=== PATIENT | male | born 1950 | race Caucasian/White ===

== ENCOUNTER 2016-09-24 07:58 | Observation (INO) | payer OTHER, MEDICARE ==
--- NOTE | 2016-09-09 14:27 | PAT Medication Instructions ---
Service Date Sep 09, 2016. 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 Instructions For Your Scheduled Surgery - Hold the following medications the morning of surgery: Zolpidem Tartrate (Zolpidem Tartrate), 1 TAB PO HS PRN for RN Ranitidine (Zantac), 150 MG PO BID Finasteride (Proscar), 5 MG PO QAM Bumetanide (Bumex), 1 MG PO QAM - Take the following medications the morning of surgery with a sip of water: Pantoprazole (Protonix), 40 MG PO QAM Levothyroxine Sodium (Levothyroxine Sodium), 1 TAB PO QAM Carvedilol (Coreg), 12.5 MG PO BID - Hold the following medications as scheduled the night before surgery: Lisinopril (Zestril), 10 MG PO QPM - Take the following medications as scheduled the night before surgery: Zolpidem Tartrate (Zolpidem Tartrate), 1 TAB PO HS PRN for RN Tamsulosin Hcl (Flomax), 0.4 MG PO QPM Ranitidine (Zantac), 150 MG PO BID Potassium Chloride (Micro-K Ext Rel), 10 MEQ PO QPM Montelukast Sodium (Singulair), 10 MG PO QPM Carvedilol (Coreg), 12.5 MG PO BID Allopurinol (Zyloprim), 300 MG PO QPM If you have any questions please call us at [phone] (Karen Ridley PA-C) or [phone] or [phone]
[2016-09-09 15:04] LABS: URINE APPEARANCE CLEAR (CLEAR); URINE BILIRUBIN NEG (NEG); URINE COLOR YELLOW; URINE EPITHELIAL CELL AUTO 0-5 /lpf (0-5); URINE NITRITE NEG (NEG); URINE PH 6.5 (4.5-7.5); UROBILINOGEN NEG (NEG)
[2016-09-09 15:08] LABS: HEMATOCRIT 40.9 % (42-52); MEAN CELL VOLUME 95.1 fL (80-100); MEAN CORPUSCULAR HGB CONC 34.7 g/dl (32-36); MEAN PLATELET VOLUME 10.2 fL (7.4-10.4); PLATELET COUNT 128 K/uL (130-400); WHITE BLOOD COUNT 4.63 K/uL (4.8-10.8)
[2016-09-09 15:09] LABS: MANUAL MICROSCOPIC REQUIRED? NO; REVIEW REQ? NO
[2016-09-09 15:51] LABS: BASO % 0.6 %; BASO ABS # 0.03 K/uL (0-0.2); COMPLETE YES; EOS % 0.9 %; IG% 0.2 %; LYMPH % 31.5 %; LYMPH ABS # 1.46 K/uL (1.2-3.4); MONO % 5.4 %; NEUT % 61.4 %
[2016-09-09 16:06] LABS: BUN/CREATININE RATIO 18.4 (10-20); CALCIUM 9.1 mg/dl (8.5-10.1); CREATININE 1.4 mg/dl (0.60-1.40); POTASSIUM 3.7 mmol/L (3.5-5.1)
[~2016-09-24] VITALS: Ht 185.4 cm; Wt 104.3 kg
[2016-09-24] VITALS (11 sets, daily range): BP systolic 110–145; BP diastolic 74–95; PULSE 62–76; TEMP 36.4–36.6; O2SAT 96–100; Ht 185.4 cm; Wt 104.3 kg
[~2016-09-24 07:58] MED LIST: ALLO300T2 PO; BUME1TAB PO; CARV12.52 PO; CIPROFLOXACIN / D5W 400 MG IV SCH; CIPROFLOXACIN 400MG / D5W IV SCH; FINA5TAB PO; LACTATED RINGER'S 1000ML 1,000 ML IV SCH; LEVO25TA5 PO; LISI-461 PO; MONT1TAB3 PO; PANT40TA PO; POTA10CA28 PO; TAMS0.4C38 PO; ZNTT/150 PO; ZOLP10TA6 PO
[2016-09-24] MEDS ORDERED: LIDOCAINE HCL 2% 2 ML VIAL (20MG/ML) ONE ×2 (09:14→10:35)
[2016-09-24] MEDS ORDERED: DEXAMETHASONE SOD INJ 4 MG/ML VIAL ONE (09:14)
[2016-09-24] MEDS ORDERED: PROPOFOL IV EMULSION 10 MG/ML 20 ML VIAL IV ONE (09:14)
[2016-09-24] MEDS ORDERED: ONDANSETRON INJ 2 MG/ML 2 ML VIAL ONE (09:14)
[2016-09-24] MEDS ORDERED: FENTANYL CITRATE INJ 50 MCG/1 ML 2 ML VIAL ONE (09:14)
[2016-09-24] MEDS ORDERED: MIDAZOLAM HCL 1 MG/ML 2ML VIAL ONE (09:14)
[2016-09-24] MEDS ORDERED: DOBUTamine 500MG / 250ML D5W ONE (09:42)
--- NOTE | 2016-09-24 09:46 | History & Physical Bridge Note ---
H&P Re-Evaluation Bridge Note: I have examined the patient, reviewed the History & Physical and in the interval since the performance of the History & Physical I have noted the following changes of clinical significance: No changes noted
[2016-09-24] MEDS ORDERED: ETOMIDATE 2 MG/ML 20 ML VIAL IV ONE (10:51)
[2016-09-24] MEDS ORDERED: EpHEDrine SULFATE INJ 50 MG/ML AMP IV PRN (11:30)
[2016-09-24] MEDS ORDERED: ATROPINE SULFATE 0.1 MG/ML 5ML SYR IV PRN (11:30)
[2016-09-24] MEDS ORDERED: PROMETHAZINE HCL INJ 12.5 MG in SODIUM CHLORIDE 0.9% 50ML 50 ML IV PRN (11:30)
[2016-09-24] MEDS ORDERED: NALOXONE HCL 0.4 MG/1 ML VIAL/CARP IV PRN (11:30)
[2016-09-24] MEDS ORDERED: ONDANSETRON INJ 2 MG/ML 2 ML VIAL IV PRN ×2 (11:30→11:45)
--- NOTE | 2016-09-24 11:36 | [facility] Post Operative Brief Note ---
Immediate Operative Summary Operative Date Sep 24, 2016. Pre-Operative Diagnosis Benign Prostatic Hyperplasia with lower urinary tract symptoms Post-Operative Diagnosis Benign Prostatic Hyperplasia with lower urinary tract symptoms Procedure(s) Performed Transurethral Resection Prostate Surgeon Dr. Ramos Cashier Manager Surgeon(s) none Estimated Blood Loss 10cc Findings Significant lateral lobe hypertrophy Specimens Prostate chips Drains 22F peña Anesthesia Gen Complication(s) None Disposition Recovery Room / PACU (stable)
[2016-09-24] MEDS ORDERED: ACETAMINOPHEN/CODEINE 300/30MG TAB PO PRN (11:45)
[2016-09-24] MEDS ORDERED: ACETAMINOPHEN 325 MG TAB PO PRN (11:45)
[2016-09-24] MEDS ORDERED: ZOLPIDEM TARTRATE 10 MG TAB PO PRN (11:45)
[2016-09-24] MEDS: FENTANYL CITRATE INJ 50 MCG/1 ML 2 ML VIAL IV PRN ×2 (12:13→12:18)
--- NOTE | 2016-09-24 12:17 | OPERATIVE REPORT ---
DATE OF OPERATION: 09/24/2016 PREOPERATIVE DIAGNOSIS: Benign prostatic hypertrophy. POSTOPERATIVE DIAGNOSIS: Benign prostatic hypertrophy. PROCEDURES PERFORMED: Cystoscopy and transurethral resection of prostate. ANESTHESIA: General. ESTIMATED BLOOD LOSS: 10 mL. URINE OUTPUT: Not recorded. SPECIMENS: Prostate chips for routine pathology. DRAINS: 22-Icelandic Sharma catheter. DESCRIPTION OF THE PROCEDURE: Osvaldo Quesada was identified in the preoperative holding area. Appropriate informed consents were reviewed and completed and the patient was transported to the operating suite. Upon arrival, he received appropriate preoperative antibiotics in the form of ciprofloxacin. Adequate general anesthesia was achieved and the patient was placed in dorsal lithotomy position, where he was sterilely prepped and draped in standard fashion. I began the case by passing a 27-Icelandic resectoscope with 30 degree lens and visual obturator per urethra. There was no evidence of stricture disease within the urethra. Prostate was notably enlarged with predominant lateral lobe hypertrophy and essentially no intravesical component. Ureteral orifices were easily identified inside the bladder and were located several centimeters from the bladder neck. Full inspection of the bladder failed to reveal any tumors or other abnormalities. Following this full inspection, I withdrew the visual obturator and passed a resecting loop and I subsequently resected the prostate sequentially beginning at the bladder neck by making incisions at 5 and 7 o'clock and resecting the intervening segment between the two to flatten the bladder neck followed by resection of the left lateral lobe and ultimately the right lateral lobe. After confirming adequate resection of these areas, I resected apical tissue adjacent to the verumontanum after complete resection. I ensured excellent hemostasis with focused electrocautery to all of the small bleeding vessels. I irrigated all chips out of the bladder. After confirming that his urine was clear and was free of chips, I concluded the case. The prostate appeared to be widely patent at the conclusion leaving the bladder full and with gentle abdominal pressure, I was able to generate a strong stream of urine. A 22-Icelandic Sharma catheter was inserted without difficulty and the case was concluded. The patient was taken to the PACU in stable condition. I attest to the content of the Intraoperative Record and any orders documented therein. Any exceptio ns are noted below.
[2016-09-24] MEDS ORDERED: FUROSEMIDE 40 MG/4 ML VIAL IV STA (12:58)
[2016-09-24] MEDS ORDERED: FUROSEMIDE 40 MG/4 ML VIAL ONE (13:04)
--- NOTE | 2016-09-24 13:25 | DIAGNOSTIC IMAGING REPORT ---
CHEST ONE VIEW PORTABLE CLINICAL HISTORY: Congestive failure COMPARISON STUDY: No previous studies for comparison. FINDINGS: The heart is enlarged. There is a left subclavian pacer/defibrillator present. Epicardial electrode is also visualized. There is no focal pulmonary consolidation. There is no overt failure. There are no pleural effusions.[ IMPRESSION: Mild cardiomegaly. No acute findings. Electronically signed by: Kingston Brooks M.D. 09/24/2016 1:22 PM Dictated Date/Time: 09/24/2016 1:22 PM
[2016-09-24] MEDS ORDERED: LIDOCAINE HCL 2% JELLY 30 ML TUBE EXT PRN (13:45)
--- NOTE | 2016-09-24 13:53 | Anesthesiology Progress Note ---
Anesthesia Post Op Note Date & Time Sep 24, 2016 at 13:46 Vital Signs Pain Intensity: 3 Vital Signs Past 12 Hours Date Time Temp Pulse Resp B/P Pulse Ox O2 Delivery O2 Flow Rate FiO2 09/24/16 13:40 36.3 68 18 134/81 100 Nasal Cannula 2 09/24/16 13:30 36.3 66 18 131/83 98 Nasal Cannula 2 09/24/16 13:20 63 19 125/82 100 Room Air 09/24/16 13:10 67 19 121/79 100 Room Air 09/24/16 13:00 66 19 126/77 100 Room Air 09/24/16 12:50 63 19 126/80 100 Room Air 09/24/16 12:40 64 19 125/80 98 Room Air 09/24/16 12:30 62 19 128/81 100 Room Air 09/24/16 12:20 65 19 99/73 99 Room Air 09/24/16 12:10 63 24 121/80 99 Room Air 09/24/16 12:00 63 16 130/86 100 Mask 10 09/24/16 11:50 65 16 133/87 98 Mask 10 09/24/16 11:40 36.6 70 16 142/93 100 Mask 10 09/24/16 08:44 36.4 70 20 140/87 98 Room Air Notes Mental Status: alert / awake / arousable, participated in evaluation Pt Amnestic to Procedure: Yes Nausea / Vomiting: adequately controlled Pain: adequately controlled Airway Patency, RR, SpO2: stable & adequate BP & HR: stable & adequate Hydration State: stable & adequate Anesthetic Complications: no major complications apparent patient has a non-ischemic cardiomyopathy w/EF of 15%.Pt states he is prone to CHF at the slightest provocation.He knows since he states he starts developing SOB. He the takes a diuretic. A cxr was performed which was w/o CHF. Furosemide was administered iv,40 mg, and pat started a brisk diuresis. He states he now feels better. The pt had a TURP and fluid was absorbed thru the prostatic sinuses contributing to excess fluid. He was administered only 150 ml LR in OR and we had started from inception a dobutamine drip at 5 mcgs/kg/min to help with contractility.
[2016-09-24] MEDS ORDERED: IV FLUIDS COMPLETED PRN ×2 (14:00)
[2016-09-24] MEDS: ACETAMINOPHEN/CODEINE 300/30MG TAB PO PRN ×2 (14:53→20:54)
[2016-09-24] MEDS ORDERED: NURSING VERBAL MED ORDER ONE ×2 (15:45→16:30)
[2016-09-24] MEDS ORDERED: BELLADONNA/OPIUM SUPP 60 MG SUPP PR SCH (16:15)
[2016-09-24] MEDS ORDERED: BELLADONNA/OPIUM SUPP 60 MG SUPP PR PRN (16:45)
[2016-09-24] MEDS: CARVEDILOL 12.5 MG TAB PO SCH (20:45)
[2016-09-24] MEDS: RANITIDINE HCL 150 MG TAB PO SCH (20:45)
[2016-09-24] MEDS: CIPROFLOXACIN / D5W 400 MG in PREMIXED IN D5W 200 ML IV SCH (20:46)
[2016-09-24] MEDS ORDERED: POTASSIUM CHLORIDE 10 MEQ TABCR PO SCH (21:00)
[2016-09-24] MEDS ORDERED: LISINOPRIL 10 MG TAB PO SCH (21:00)
[2016-09-24] MEDS ORDERED: MONTELUKAST SOD 10 MG TAB PO SCH (21:00)
[2016-09-24] MEDS ORDERED: ALLOPURINOL 300 MG TAB PO SCH (21:00)
[2016-09-25 00:01] VITALS: O2SAT 96
[2016-09-25 04:17] VITALS: BP 111/66; PULSE 69; TEMP 36.4; O2SAT 96
[2016-09-25] MEDS ORDERED: LEVOTHYROXINE 25 MCG TAB PO SCH (06:00)
[2016-09-25] MEDS: ACETAMINOPHEN/CODEINE 300/30MG TAB PO PRN (06:07)
[2016-09-25 06:16] LABS: BASO % 0.1 %; BASO ABS # 0.01 K/uL (0-0.2); COMPLETE YES; HEMATOCRIT 42.8 % (42-52); IG% 0.2 %; LYMPH % 9.8 %; LYMPH ABS # 0.85 K/uL (1.2-3.4); MEAN CELL VOLUME 97.7 fL (80-100); MEAN CORPUSCULAR HEMOGLOBIN 32.9 pg (25-34); MEAN CORPUSCULAR HGB CONC 33.6 g/dl (32-36); MEAN PLATELET VOLUME 10.1 fL (7.4-10.4); MONO % 6.7 %; NEUT % 83.2 %; PLATELET COUNT 138 K/uL (130-400); RED BLOOD COUNT 4.38 M/uL (4.7-6.1); WHITE BLOOD COUNT 8.67 K/uL (4.8-10.8)
[2016-09-25 06:52] LABS: BUN/CREATININE RATIO 12.8 (10-20); CREATININE 1.4 mg/dl (0.60-1.40); POTASSIUM 4.2 mmol/L (3.5-5.1)
[2016-09-25 08:40] VITALS: BP 119/72; PULSE 76; TEMP 36.5; O2SAT 96
[2016-09-25] MEDS: CARVEDILOL 12.5 MG TAB PO SCH (08:58)
[2016-09-25] MEDS: RANITIDINE HCL 150 MG TAB PO SCH (08:58)
[2016-09-25] MEDS: CIPROFLOXACIN / D5W 400 MG in PREMIXED IN D5W 200 ML IV SCH (08:58)
[2016-09-25] MEDS ORDERED: BUMETANIDE 1 MG TAB PO SCH (09:00)
[2016-09-25] MEDS ORDERED: FINASTERIDE 5 MG TAB PO SCH (09:00)
[2016-09-25] MEDS ORDERED: PANTOprazole SOD 40 MG TAB PO SCH (09:00)
[2016-09-25] MEDS ORDERED: ACET-749 PO (09:37)
[2016-09-25] MEDS ORDERED: DOCU-94 PO (09:37)
[2016-09-25] MEDS ORDERED: CIPR1TAB10 PO (09:37)
--- NOTE | 2016-09-25 09:40 | Discharge Instructions ---
Discharge Instructions Date of Service Sep 25, 2016. Admission Reason for Admission: Benign Prostatic Hyerplasia Discharge Discharge Diagnosis / Problem: Benign Prostatic Hyperplasia Discharge Goals Goal(s): Decrease discomfort, Improve function, Increase independence, Improve disease control, Therapeutic intervention Activity Recommendations Activity Limitations: as noted below Lifting Limitations: no more than 25 pounds (x 2 weeks) Exercise/Sports Limitations: rest today, gradually increase as tolerated ( Light activit x 2 weeks) May Resume Sexual Activity: after follow-up appointment Shower/Bathe: no limitations Driving or Machine Use: resume 3 days after discharge (Do not drive while taking narcotics) . Current Hospital Diet Hospital Diet(s): Regular Diet Discharge Diet Recommended Diet: Regular Diet Procedures Procedures Performed: Transurethral Resection Prostate Pending Studies Studies pending at discharge: yes List of pending studies: prostate tissue for pathology Medical Emergencies . Who to Call and When: Medical Emergencies: If at any time you feel your situation is an emergency, please call 911 immediately. . Non-Emergent Contact Non-Emergency issues call your: Urologist Call Non-Emergent contact if: temperature is above 101.5, your pain is not controlled, your pain is worsening, your pain is unusual for you, your pain is concerning you, you have any medication questions . . "Provider Documentation" section prepared by Daysi Perea. . VTE Core Measure Inpt VTE Proph given/why not?: SCD's [place] Drug Monitoring Program Search Results: patient reviewed within database, see additional documentation Drug Monitoring Findings: History of chronic tramadol use. No other issues found.
--- NOTE | 2016-09-25 09:57 | Progress Note ---
Subjective Date of Service: Sep 25, 2016. Subjective Pt evaluation today including: conversation w/ patient, chart review, lab review Voiding: peña catheter in place (patent, draining dark peralta urine) 66 yo male s/p TURP. Seen earlier by Dr. Ramos this morning. Peña draining dark peralta colored urine. TOV ordered by Dr. Ramos this morning. H&H stable. Cr is 1.4. Pt denies pain or other issues this morning. Review of Systems Constitutional: No chills, No fever Respiratory: No shortness of breath Cardiac: No chest pain Abdomen: No nausea, No pain, No vomiting Male : + hematuria Objective Vital Signs Date Time Temp Pulse Resp B/P Pulse Ox O2 Delivery O2 Flow Rate FiO2 09/25/16 08:40 36.5 76 20 119/72 96 Room Air 09/25/16 04:17 36.4 69 18 111/66 96 Room Air 09/25/16 04:00 Room Air 09/25/16 00:01 96 Room Air 09/24/16 23:10 36.6 68 18 110/74 96 Room Air 09/24/16 20:00 98 Room Air 09/24/16 19:26 36.6 66 18 138/95 98 Room Air 09/24/16 17:45 36.6 67 18 127/80 100 Room Air 09/24/16 17:05 100 Nasal Cannula 09/24/16 16:52 36.6 72 18 128/77 09/24/16 16:45 36.6 73 18 119/75 100 Room Air 09/24/16 15:45 36.6 76 18 145/91 98 Nasal Cannula 09/24/16 15:45 36.6 69 19 127/80 100 Room Air 09/24/16 14:45 36.6 65 18 128/82 98 Nasal Cannula 09/24/16 14:00 36.6 66 18 145/82 100 Nasal Cannula 2.0 09/24/16 14:00 36.4 62 18 130/78 97 Nasal Cannula 2.0 09/24/16 14:00 100 Nasal Cannula 2.0 09/24/16 13:40 36.3 68 18 134/81 100 Nasal Cannula 2 09/24/16 13:30 36.3 66 18 131/83 98 Nasal Cannula 2 09/24/16 13:20 63 19 125/82 100 Room Air 09/24/16 13:10 67 19 121/79 100 Room Air 09/24/16 13:00 66 19 126/77 100 Room Air 09/24/16 12:50 63 19 126/80 100 Room Air 09/24/16 12:40 64 19 125/80 98 Room Air 09/24/16 12:30 62 19 128/81 100 Room Air 09/24/16 12:20 65 19 99/73 99 Room Air 09/24/16 12:10 63 24 121/80 99 Room Air 09/24/16 12:00 63 16 130/86 100 Mask 10 09/24/16 11:50 65 16 133/87 98 Mask 10 09/24/16 11:40 36.6 70 16 142/93 100 Mask 10 Physical Exam General Appearance: no apparent distress Eyes: normal inspection ENT: hearing grossly normal Neck: no JVD Respiratory/Chest: no respiratory distress, no accessory muscle use Cardiovascular: no JVD Extremities: normal inspection Neurologic/Psychiatric: alert, normal mood/affect, oriented x 3 Skin: normal color Laboratory Results Last 24 Hours Test 09/25/16 05:21 White Blood Count 8.67 K/uL Red Blood Count 4.38 M/uL Hemoglobin 14.4 g/dL Hematocrit 42.8 % Mean Corpuscular Volume 97.7 fL Mean Corpuscular Hemoglobin 32.9 pg Mean Corpuscular Hemoglobin Concent 33.6 g/dl Platelet Count 138 K/uL Mean Platelet Volume 10.1 fL Neutrophils (%) (Auto) 83.2 % Lymphocytes (%) (Auto) 9.8 % Monocytes (%) (Auto) 6.7 % Eosinophils (%) (Auto) 0.0 % Basophils (%) (Auto) 0.1 % Neutrophils # (Auto) 7.21 K/uL Lymphocytes # (Auto) 0.85 K/uL Monocytes # (Auto) 0.58 K/uL Eosinophils # (Auto) 0.00 K/uL Basophils # (Auto) 0.01 K/uL RDW Standard Deviation 49.7 fL RDW Coefficient of Variation 13.8 % Immature Granulocyte % (Auto) 0.2 % Immature Granulocyte # (Auto) 0.02 K/uL Sodium Level 138 mmol/L Potassium Level 4.2 mmol/L Chloride Level 102 mmol/L Carbon Dioxide Level 29 mmol/L Anion Gap 7.0 mmol/L Blood Urea Nitrogen 18 mg/dl Creatinine 1.40 mg/dl Est Creatinine Clear Calc Drug Dose 64.0 ml/min Estimated GFR () 59.4 Estimated GFR (Non- 51.3 BUN/Creatinine Ratio 12.8 Random Glucose 113 mg/dl Calcium Level 9.0 mg/dl Assessment and Plan POD #1 s/p TURP AFVSS. Pt doing well post-op. Will attempt a TOV this morning. D/c home later this morning after pt voids and ambulates. D/c home with Tylenol #3, Colace, and 5 days of Cipro. F/u with Dr. Ramos as scheduled.
[2016-09-25 11:30] VITALS: BP 123/69; PULSE 69; TEMP 36.6; O2SAT 97
[2016-09-25 12:15] VITALS: BP 123/69; PULSE 69; TEMP 36.6; O2SAT 97
--- NOTE | 2016-09-25 12:57 | Anesthesiology Progress Note ---
Anesthesia Post Op Note Date & Time Sep 25, 2016 at 12:55 Vital Signs Pain Intensity: 0.0 Vital Signs Past 12 Hours Date Time Temp Pulse Resp B/P Pulse Ox O2 Delivery O2 Flow Rate FiO2 09/25/16 12:15 36.6 69 20 97 Room Air 09/25/16 11:30 36.6 69 20 123/69 97 Room Air 09/25/16 08:40 36.5 76 20 119/72 96 Room Air 09/25/16 08:00 Room Air 09/25/16 04:17 36.4 69 18 111/66 96 Room Air 09/25/16 04:00 Room Air Notes Mental Status: alert / awake / arousable, participated in evaluation Pt Amnestic to Procedure: Yes Nausea / Vomiting: adequately controlled Pain: adequately controlled Airway Patency, RR, SpO2: stable & adequate BP & HR: stable & adequate Hydration State: stable & adequate Anesthetic Complications: no major complications apparent
--- NOTE | 2016-10-03 08:23 | Discharge Summary ---
Discharge Summary Date of Service October 03, 2016. Discharge Summary Admission Date: Sep 24, 2016 at 11:41 Discharge Date: Sep 25, 2016 Discharge Disposition: Home Principal Diagnosis: BPH with urinary symptoms Procedures: TURP Medication Reconciliation New Medications: Ciprofloxacin Hcl (Cipro) 500 Mg Tab 500 MG PO BID, #10 TAB Docusate Sodium (Colace) 100 Mg Cap 1 CAP PO BID PRN for Constipation for 15 Days, #30 CAP Acetaminophen/Codeine (Tylenol W/Codeine #3) 300 Mg/30 Mg Tab 2 TAB PO Q6H PRN for severe pain (pain scale 7-10), #20 TAB 0 Refills Do not take with Tramadol. Continued Medications: Allopurinol (Zyloprim) 300 Mg Tab 300 MG PO QPM, TAB Bumetanide (Bumex) 1 Mg Tab 1 MG PO QAM, TAB Carvedilol (Coreg) 12.5 Mg Tab 12.5 MG PO BID, TAB Levothyroxine Sodium (Levothyroxine Sodium) 25 Mcg Tab 1 TAB PO QAM for 90 Days, #90 TAB 3 Refills Lisinopril (Zestril) 10 Mg Tab 10 MG PO QPM, TAB Montelukast Sodium (Singulair) 10 Mg Tab 10 MG PO QPM, TAB Pantoprazole (Protonix) 40 Mg Tab 40 MG PO QAM, #30 TAB Potassium Chloride (Micro-K Ext Rel) 10 Meq Capcr 10 MEQ PO QPM, CAP Ranitidine (Zantac) 150 Mg Tab 150 MG PO BID, TAB Zolpidem Tartrate (Zolpidem Tartrate) 10 Mg Tab 1 TAB PO HS PRN for RN for 30 Days, #30 TAB Discontinued Medications: Finasteride (Proscar) 5 Mg Tab 5 MG PO QAM, TAB Tamsulosin Hcl (Flomax) 0.4 Mg Cap 0.4 MG PO QPM, CAP Hospital Course Pt admitted for TURP. Known history of CHF and some COPD. Tolerated his urological procedure very well. Kept on telemetry overnight and proved to be stable. Successfully completed a trial of void on POD#1 and was discharged home in stable condition. Total time spent on discharge = This includes examination of the patient, discharge planning, medication reconciliation, and communication with other providers. Discharge Instructions Please see previously written d/c instructions
== END 2016-09-25 14:23 | disposition home or self-care (01) ==
LOC: ENRESERVDT → ENRESERVTM → C.ACU 07:58 → C.2E 11:41
PROVIDERS: ADMIT Urology; ATTEND Urology
DX: N40.1 Benign prostatic hyperplasia with lower urinary tract symptoms (principal); J44.9 Chronic obstructive pulmonary disease, unspecified; I25.10 Atherosclerotic heart disease of native coronary artery without angina pectoris; I10 Essential (primary) hypertension; H40.9 Unspecified glaucoma; I73.00 Raynaud's syndrome without gangrene; M10.9 Gout, unspecified; E66.9 Obesity, unspecified; Z68.30 Body mass index [BMI] 30.0-30.9, adult; I50.9 Heart failure, unspecified; E11.9 Type 2 diabetes mellitus without complications; Z98.890 Other specified postprocedural states; Z79.899 Other long term (current) drug therapy; Z87.891 Personal history of nicotine dependence; Z83.3 Family history of diabetes mellitus; Z82.49 Family history of ischemic heart disease and other diseases of the circulatory system; Z80.9 Family history of malignant neoplasm, unspecified